=== PATIENT | born 1985 | race Caucasian/White ===

== ENCOUNTER 2024-11-18 15:07 | Outpatient (AMB) | payer BC, SELFPAY ==
--- NOTE | 2024-11-18 15:15 | MHC.OFFVIS ---
Vital Signs 11/18/24 15:17 Height 5 ft Weight 190 lb 11.198 oz BMI 37.2 BP 122/77 Blood Pressure Location Rt brachial Position Sitting Pulse 132 Pulse Source Doppler Pulse Oximetry (%) 95 Oxygen Delivery Method Room Air Intake Visit Reasons: Asthma Allergies hydrocodone Allergy (Severe, Verified 11/18/24 15:21) Anaphylaxis Sulfa (Sulfonamide Antibiotics) Allergy (Intermediate, Verified 11/18/24 15:21) Itching HPI HPI Asthma: Details: 39-year-old lady, 25 pack-year smoker, trying to quit, with underlying history of asthma referred for pulmonary evaluation. Patient said that she has been using albuterol MDI and ipratropium HFA with suboptimal control of her symptoms. She also complains of environmental allergies. Patient does not have recent pulmonary function or allergy testing. Patient states that she has been getting recurrent upper respiratory infections. She does have history of COPD in her mother. She previously was employed as a saxophone assembler. [facility] Social History (Updated 11/18/24 @ 15:24 by Kristyn Boyer [facility]) Patient Tobacco Use Status: Current everyday Tobacco user Tobacco use type: Cigarette Cigarettes Per Day: 10 Years Smoked: started age 15, 10 cig a day, Review of Systems Const Denies daytime sleepiness, Denies excessive sweating, Denies fatigue, Denies fever(s), Denies lethargy, Denies malaise, Denies night sweats, Denies snoring and Denies weight loss Eyes Denies blurry vision and Denies itchy eyes ENT Denies nasal congestion, Denies post nasal drip, Denies sinus pain, Denies sinus pressure and Denies other ( Thrush) Card Reports chest pain (Nonexertional), Denies pedal edema, Denies dyspnea, Denies orthopnea and Denies paroxysmal nocturnal dyspnea Resp Reports cough, Denies hemoptysis, Denies excessive phlegm production, Denies dyspnea, Denies snoring and Reports wheezing GI Denies abdominal pain and Denies heartburn Musc Denies myalgias, Denies arthralgias and Denies joint swelling Skin/Breast Denies rash Neuro Denies memory loss and Denies seizure-like activity Psych Denies abnormal sleep pattern, Denies anxiety and Denies memory loss Endo Denies excessive sweating, Denies fatigue and Denies heat intolerance Eugene/Lymph Denies easy bruising Aller/Immun Denies itchy eyes, Denies seasonal rhinorrhea and Reports wheezing Physical Exam Vital Signs: Last Vital Signs Pulse 132 11/18/24 15:17 BP 122/77 11/18/24 15:17 Pulse Ox 95 11/18/24 15:17 Oxygen Delivery Method Room Air 11/18/24 15:17 BMI result Body Mass Index 37.2 Const General: no acute distress and alert Nutritional Appearance: obese Orientation/consciousness: Other orientation findings ( oriented) HEENT Head: Yes atraumatic Eyes General: appearance normal, both eyes and all related structures Sclerae: sclerae normal EOM: EOMs intact bilaterally Neck Neck: Yes supple Lymphatic: no lymphadenopathy noted Resp Effort & Inspection: normal respiratory effort and no use of accessory muscles Auscultation: clear to auscultation bilaterally Cardio Rate: regular rate Rhythm: regular rhythm Heart sounds: no gallops, no murmurs and no rubs Skin General skin exam: other ( warm) Extrem General: No clubbing, No cyanosis and No edema Assessment & Plan Assessment & Plan (1) Asthma: Code(s): J45.909 - Unspecified asthma, uncomplicated Category: Medical Plan: Underlying asthma of unclear severity suboptimally controlled on ipratropium and albuterol MDI. Will start on Breo and obtain full PFT. (2) Recurrent URI (upper respiratory infection): Code(s): J06.9 - Acute upper respiratory infection, unspecified Category: Medical Plan: Will obtain immunoglobulin levels for further evaluation. (3) Environmental allergies: Code(s): Z91.09 - Other allergy status, other than to drugs and biological substances Category: Medical Plan: Will obtain IgE level, CBC with differential, and RAST panel. Orders: Orders Complete Blood Count Auto Diff Today Z91.09 - Other allergy status, other than to drugs and biological substances Resp Allergy Profile Region I Today J06.9 - Acute upper respiratory infection, unspecified, J45.909 - Unspecified asthma, uncomplicated, Z91.09 - Other allergy status, other than to drugs and biological substances PFT pulmonary function test Today J45.909 - Unspecified asthma, uncomplicated Immunoglobulins,IgG IgA IgM Today J06.9 - Acute upper respiratory infection, unspecified Immunoglobulin G Subclasses Today J06.9 - Acute upper respiratory infection, unspecified Medications: New fluticasone furoate-vilanterol 200-25 mcg/dose (Breo Ellipta) 1 inh inhalation DAILY 60 ea 6RF J06.9 - Acute upper respiratory infection, unspecified Coding Level of Care Code New Pt Level 4 (04579) Diagnoses Asthma J45.909 Recurrent URI (upper respiratory infection) J06.9 Environmental allergies Z91.09
[2024-11-18 15:17] VITALS: BP 122/77; PULSE 132; O2SAT 95; BMI 37.2
== END 2024-11-18 15:41 | disposition home or self-care (01) ==
LOC: HO.HPS 15:07
PROVIDERS: PCP Physician Assistant Medical; Visit Provider Internal Medicine Pulmonary Disease
DX: J45.909 Unspecified asthma, uncomplicated (principal); J06.9 Acute upper respiratory infection, unspecified; Z91.09 Other allergy status, other than to drugs and biological substances
CPT/HCPCS: 99204

== ENCOUNTER 2024-11-18 15:07 | Outpatient (REF) | payer BC, SELFPAY ==
[2024-11-18 16:42] LABS: MANUAL DIFF FLAG NO
[2024-11-18 17:08] LABS: Basophils Absolute Auto 0.1 X10*3/uL; Basophils Percent Auto 0.6 %; Eosinophils Absolute Auto 0.1 X10*3/uL; Eosinophils Percent Auto 0.5 %; Hematocrit 47.8 %; Hemoglobin 16.4 g/dl; Imm Gran Abs Auto 0.04 X10*3/uL (0.00-0.03); Imm Gran Pct Auto 0.3 % (0.0-0.4); Lymphocytes Absolute Auto 3.1 X10*3/uL; Lymphocytes Percent Auto 24.1 %; Mean Corpuscular HGB Conc 34.3 g/dl; Mean Corpuscular Hemoglobin 30.2 pg; Mean Platelet Volume 9.6 fL (9.4-12.4); Monocytes Absolute Auto 0.8 X10*3/uL; Monocytes Percent Auto 6.2 %; Neutrophils Absolute Auto 8.7 x10*3/uL; Neutrophils Percent Auto 68.3 %; Platelet Count 428 X10*3/uL; Red Blood Count 5.43 X10*6/uL; Red Cell Distribution Width 13.4 % (11.0-16.0); White Blood Count 12.8 X10*3/uL
[2024-11-21 07:19] LABS: IgA 226 mg/dL (47-310); IgG 767 mg/dL (600-1640); IgM 125 mg/dL (50-300)
[2024-11-21 16:17] LABS: Immunoglobulin G Subclass 1 348 mg/dL (382-929); Immunoglobulin G Subclass 2 289 mg/dL (241-700); Immunoglobulin G Subclass 3 37 mg/dL (22-178); Immunoglobulin G Subclass 4 10.5 mg/dL (4-86); Immunoglobulin G Total 699 mg/dL (600-1640)
[2024-11-26 12:57] LABS: Class Alternaria alternata 0; Class Aspergillus fumigatus 0; Class Bermuda Grass 0; Class Birch 0; Class Cat Dander 0; Class Cladosporium herbarum 0; Class Cockroach 0; Class Common Ragweed 0; Class Cottonwood 0; Class Derm. pterony 0; Class Dermatophagoides farinae 0; Class Dog Dander 0; Class Elm 0; Class Maple Box Elder 0; Class Mountain Cedar 0; Class Mouse Urine Protein 0; Class Mugwort 0; Class Oak 0; Class Penicillium crysogenum 0; Class Rough Pigweed 0; Class Sheep Sorrel 0; Class Sycamore 0; Class Timothy Grass 0; Class Walnut Tree 0; Class White Ash 0; Class White Mulberry 0; D001 IgE D pteronyssinus <0.10 kU/L; D002 - IgE D farinae <0.10 kU/L; E001 - IgE Cat Dander <0.10 kU/L; E005 - IgE Dog Dander <0.10 kU/L; E072-IgE Mouse Urine <0.10 kU/L; G002 IgE Bermuda Grass <0.10 kU/L; G006 - IgE Timothy Grass <0.10 kU/L; I006-IgE Cockroach, German <0.10 kU/L; Immunoglobulin E 136 kU/L (<OR=114); M001 IgE Penicillium chrysogen <0.10 kU/L; M002 - IgE Cladosporium herbar <0.10 kU/L; M003 - IgE Aspergillus fumigat <0.10 kU/L; M006 - IgE Alternaria alternat <0.10 kU/L; T001 IgE Maple/Box Elder <0.10 kU/L; T003 IgE Common Silver Birch <0.10 kU/L; T006 - IgE Cedar, Mountain <0.10 kU/L; T007 - IgE Oak, White <0.10 kU/L; T008 IgE Elm, American <0.10 kU/L; T010 - IgE Walnut <0.10 kU/L; T011 - IgE Maple Leaf Sycamore <0.10 kU/L; T014 - IgE Cottonwood <0.10 kU/L; T015 - IgE Ash, White <0.10 kU/L; T070 - IgE White Mulberry <0.10 kU/L; W001 - IgE Ragweed, Short <0.10 kU/L; W006 - IgE Mugwort <0.10 kU/L; W014 IgE Pigweed, Common <0.10 kU/L; W018 IgE Sheep Sorrel <0.10 kU/L
== END 2024-11-18 15:08 | disposition home or self-care (01) ==
LOC: HO.LAB 15:07
PROVIDERS: PCP Physician Assistant Medical; Visit Provider Internal Medicine Pulmonary Disease
DX: J06.9 Acute upper respiratory infection, unspecified (principal); Z91.09 Other allergy status, other than to drugs and biological substances; J45.909 Unspecified asthma, uncomplicated
CPT/HCPCS: 36415; 82784; 82785; 85025; 86003

== ENCOUNTER 2024-12-23 13:52 | Outpatient (REF) | payer BC, SELFPAY ==
[2024-12-23 10:21] VITALS: PULSE 122; O2SAT 99
--- NOTE | 2024-12-23 14:05 | PFT_ITS ---
Flows: FEV1: 96 % of predicted at 2.54 L FVC: 97 % of predicted at 3.08 L FEV1/FVC: 83 % Bronchodilator response: Absent Volumes: Total lung capacity: 81 % of predicted at 3.67 L Residual volume: 60 % of predicted at 0.68 L Slow vital capacity: 87 % of predicted at 3.00 L Expiratory reserve volume: 51 % of predicted at 0.52 L Diffusion capacity: Normal Impression: No obstructive or restrictive ventilatory defect. No bronchodilator response. Decreased expiratory reserve volume suggests extrathoracic restriction likely secondary to abdominal obesity. MTDD
--- OUTSIDE RECORDS SUMMARY | 2024-12-23 14:18 | XMS_ITS | Patient Health Record ---
Author Organization [facility] Address [address] [place] [address] Care Team Providers Care Strip Machine Tender Name Role Phone JAYSHREE LAY M.D. Primary Care Provider DYLAN Marx Unavailable [phone] Allergies Allergen (clinical drug ingredient) Drug/Non Drug Allergy documented on EMR Reaction Allergy Type Onset Date Status doxycycline Doxycycline ITCHING Drug Allergy Act marlo hydrocodone Hydrocodone anaphylaxis Drug Allergy A ctive Substance with sulfonamide structure and antibacterial mechanism of action (substance) Sulfa Antibiotics RASH Drug Allergy Active Results Component Value Reference Range Notes SURGICAL PATHOLOGY Reviewed date:05/16/2024 01:23:17 PM Interpretation: Performing Lab:Testing performed or reported by [facility], a Service of [facility], [address] [place] [address] Roland Garcia MD, Electrical Lineman [facility]# [id number] Notes/Report: Patient Name: RASHID UNDERWOOD Lab Patient : 1985 (Age: 38) Collection Date: 05/06/2024 Accession Date: 05/06/2024 Sign Out Date: 05/13/2024 Tissue Source: 1:EMB Final Diagnosis: Endometrium, biopsy: - Weakly proliferative endometrium with stromal breakdown. Primary Pathologist:Smitha Ribeiro M.D. electronically signed out by: Smitha Ribeiro M.D. / OLIVERIO Clinical History: Abnormal uterine bleeding Gross Description: Labeled endometrial biopsy . Received in formalin is a 1.1 x 1.0 x 0.2 cm aggregate of red, triplett tissue with translucent mucus. The specimen is entirely submitted. 1-multiple pieces, x 2. (EG)* As of January 09, 2024, the specimen processing and staining is performed at [facility], [address] [place] [address] (CLIA#[id number]). Its [facility]. Axel Salinas M.D. Electrical Lineman of Surgical Pathology, Genaro Braswell M.D. Electrical Lineman Cytopathology Phone #: [phone], On-Call Pathologist: [id number] Test, Urine Reviewed date:03/31/2024 01:11:03 PM Interpretation: Performing Lab: Notes/Report: Test, Urine NEG TSH reflex to [id number] Reviewed date:04/01/2024 08:43:06 AM Interpretation: Performing Lab:[facility], [address] [place] [address], Phone - [phone], Director - MDJodry Notes/Report: TSH 1.420 0.450-4.500 uIU/mL CBC, No Differential/Platele [id number] Reviewed date:04/01/2024 02:11:41 PM Interpretation: Performing Lab:[facility] [address] [place] [address], Phone - [phone], Director - MDJodry Notes/Report: WBC 11.2 3.4-10.8 x10E3/uL RBC 4.91 3.77-5.28 x10E6/uL Hemoglobin 14.8 11.1-15.9 g/dL Hematocrit 45.1 34.0-46.6 % MCV 92 79-97 fL MCH 30.1 26.6-33.0 pg MCHC 32.8 31.5-35.7 g/dL RDW 12.4 11.7-15.4 % PDF Report Reviewed date:04/01/2024 08:43:17 AM Interpretation: Performing Lab:[facility] [address] [place] [address], Phone - [phone], Director - MDJodry Notes/Report: Reason For Referral No Information Medications Medication SIG (Take, Route, Frequency, Duration) Notes Start Date End Date Status Sertraline HCl 100 MG Oral for 30 Days Active miSOPROStol 200 MCG as directed Orally 8 -12 hrs prior to appointment for 1 days 03/31/2024 Active Cyclobenzaprine HCl 10 MG Oral for 15 Days Active Progesterone 200 MG TAKE 2 CAPSULES BY M OUTH AT BEDTIME FOR 90 DAYS for 90 Active buPROPion HCl 100 MG Oral for 30 Days Active amLODIPine Besylate 10 MG 1 tablet Orall y Once a day for 30 day(s) Active clonazePAM 0.5 MG 1 tablet at bedtime Orally Once a day Active Naltrexone HCl 50 MG 1 tablet Orally Onc e a day for 30 day(s) Active lamoTRIgine 200 MG as directed Orally Active Social History Tobacco Use: Social History Observation Description Date Details (start date - stop date) Current Smoker NA - NA Tobacco Use/Smoking Question Answer Notes Are you a current smoker How often do you smoke cigarettes? every day How many cigarettes a day do you smoke? 11-20 Are you interested in quitting? Thinking about q uitting Alcohol Screen (Audit-C) Question Answer Notes Did you have a drink contain ing alcohol in the past year? Yes How often did you have a dri nk containing alcohol in the past year? 2 to 4 times a month (2 points) How many drinks did you have on a typical day when you were drinking in the past year? 3 or 4 drinks (1 point) How often did you have 6 or more drinks on one occasion in the past year? Never (0 point) Points 3 Interpretation Positive Problems Problem Type SNOMED Code ICD Code Onset Dates Problem Status W/U Status Risk Notes Problem Excessive and frequent menstruation (906949790) Excessive and frequent menstruation with regular cycle (N92.0) Active confirmed Problem Essential hypertension (56214898) Essential (primary) hypertension (I10) Active confirmed Problem Recurrent major depression in remission (82477179) Major depressive disorder, recurrent, in partial remission (F33.41) Active confirmed Problem Post-traumatic stress disorder (70983497) Post-traumatic stress disorder, unspecified (F43.10) Active confirmed Problem Uncomplicated asthma (disorder) (214045435) Unspecified asthma, uncomplicated (J45.909) Active confirmed Problem Fibromyalgia (902151747) Fibromyalgia (M79.7) Active confirmed Problem Benign endometrial hyperplasia (196731141636729) Benign endometrial hyperplasia (N85.01) Active confirmed Problem Abnormal uterine bleeding (60316614666544) Abnormal uterine and vaginal bleeding, unspecified (N93.9) Active confirmed Problem Pain in female genitalia on intercourse (09128689) Superficial (introital) dyspareunia (N94.11) Active confirmed Problem Body mass index 35.00 to 39.99 (995009361765874) Body mass index [BMI] 39.0-39.9, adult (Z68.39) Active confirmed Vital Signs Temperature 97.1 degrees Fahrenheit 03/31/2024 Blood pressure diastolic 82 mm Hg 03/31/2024 Height 60 in 03/31/2024 Blood pressure systolic 128 mm Hg 03/31/2024 Weight 200 lbs 03/31/2024 BMI 39.06 kg/m2 03/31/2024 Encounters Encounter Location Date Provider Diagnosis Total [address] [address] 03/24/2024 DYLAN PAULSON Encounter for gynecological examination (general) (routine) without abnormal findings Z01.419 and Encounter for screening for infections with a predominantly sexual mode of transmission Z11.[address] [address] 03/31/2024 DYLAN PAULSON Abnormal uterine and vaginal bleeding, unspecified N93.9 and Superficial (introital) dyspareunia N94.[address] [address] 05/06/2024 DYLAN PAULSON Abnormal uterine and vaginal bleeding, unspecified N93.[address] [address] 03/17/2024 DYLAN PAULSON [address] [address] 10/20/2024 DYLAN PAULSON Benign endometrial hyperplasia N85.01 Assessments Encounter Date Diagnosis (ICD Code) Assessment Notes Treatment Notes Treatment Clinical Notes Section Notes 03/24/2024 Encounter for gynecological examination (general) (routine) without abnormal findings (ICD-10 - Z01.419) During the visit, the following areas of concern were addressed: Discussed cervical cancer screening with either cytology alone every 3 years or high risk HPV co-testing every 5 years as per ASCCP guidelines. Advised continued annual pelvic exams. Patient encouraged to increase her level of exercise. SBE technique encouraged/taugh t. 03/31/2024 Abnormal uterine and vaginal bleeding, unspecified (ICD-10 - N93.9) Bleeding may be due to continuous progesterone use. Last biopsy was inactive endometrium. Will rule out polyps or new fibroids (has had 2 known small fibroids on previous ultrasounds). 03/31/2024 Superficial (introital) dyspareunia (ICD-10 - N94.11) Discussed taking things slow, using more foreplay and using 101 Nights of Great Sex book to help. I encourage her to have intimate time without penetration at first. 05/06/2024 Abnormal uterine and vaginal bleeding, unspecified (ICD-10 - N93.9) 10/20/2024 Benign endometrial hyperplasia (ICD-10 - N85.01) 03/24/2024 Encounter for screening for infections with a predominantly sexual mode of transmission (ICD-10 - Z11.3) Plan Of Treatment Pending Test Test Name Order Date Sonohysterogram 06/26/2022 Sonohysterogram 03/31/2024 Test, Urine 08/01/2022 URINE CULTURE 07/14/2023 ULTRASOUND: PELVIC W/TRANSVAGINAL 2021 ULTRASOUND: PELVIC W/TRANSVAGINAL 2022 CBC, Platelet, No [id number] Future Test Test Name Order Date MM Digital Mammo Screening 2024 Insurance Providers Payer Name Payer Address Payer Phone Subscriber Number Group Number Insured Name Patient Relationship to Insured Coverage Start Date Coverage End Date [employer] [address] [place] [address] [id number] RASHID UNDERWOOD Self - patient is the insured Medical (General) History Medical History History ICD Code Essential (primary) hypertension I10 Unspecified asthma, uncomplicated J45.90 9 Post-traumatic stress disorder, unspecif ied F43.10 Major depressive disorder, recurrent, in partial remission F33.41 Fibromyalgia M79.7 COVID-19 U07.1 Surgical History Surgery Date(Month/Year) ESSURE INSERTION 2013 TUBAL LIGATION (bilateral salpinectomy) 2019 Endoscopy 08/2018 LEEP 2005 Hospitalization History Reason Date(Month/Year) SEE SURGICAL HX
--- OUTSIDE RECORDS SUMMARY | 2024-12-23 14:18 | XMS_ITS ---
Author Organization [facility] Address [address] [place] [address] Care Team Providers Care Mission Worker Name Role Phone JAYSHREE LAY M.D. Primary Care Provider DYLAN Marx Unavailable [phone] REASON FOR VISIT PROGESTERONE REFILL Medications Medication SIG (Take, Route, Fr equency, Duration) Notes Start Date End Date Status Progesterone 200 MG TAKE 2 CAPSULES BY M OUTH AT BEDTIME FOR 90 DAYS for 90 Activ e Encounters Encounter Location Date Provider Diagnosis [address] [address] 10/20/2024 DYLAN PAULSON Benign endometrial hyperplasia N85.01 Assessments Encounter Date Diagnosis (ICD Code) Assessment Notes Treatment Notes Treatment Clinical Notes Section Notes 10/20/2024 Benign endometrial hyperplasia (ICD-10 - N85.01) Plan Of Treatment Medication Medication Name Sig Start Date Stop Date Notes Progesterone 200 MG TAKE 2 CAPSULES BY M OUTH AT BEDTIME FOR 90 DAYS for 90 Progress Notes * EMA UNDERWOODINDOB:1985 ( 39 yo F)Acc No.[id number]:10/20/2024 Patient:?RASHID UNDERWOOD :1985???Age:39 Y???Sex:Female Address:[address] [place] [address], [address] * Refills? Refill Progesterone Capsule, 200 MG, 180 Capsule, TAKE 2 CAPSULES BY MOUTH AT BEDTIME FOR 90 DAYS, 90, Refills=4 * true * Date:? Generated for Nolberto virk/Zander/Marcialitting on:?12/23/2024 02:18 PM EST
--- OUTSIDE RECORDS SUMMARY | 2024-12-23 14:18 | XMS_ITS ---
Author Organization [email or web address] Address [address] [place] [id number] Care Team Providers Care Hydrogenation Still Operator Name Role Phone JAYSHREE LAY M.D. Primary Care Provider DYLAN Marx Unavailable [phone] REASON FOR VISIT Annual MANAGER DIABETES Physical Encounters Encounter Location Date Provider Diagnosis [email or web address] [address] [address] 05/27/2024 DYLAN PAULSON Encounter for gynecological examination (general) (routine) without abnormal findings Z01.419 and Encounter for screening for infections with a predominantly sexual mode of transmission Z11.3 Assessments Encounter Date Diagnosis (ICD Code) Assessment Notes Treatment Notes Treatment Clinical Notes Section Notes 05/27/2024 Encounter for gynecological examination (general) (routine) without abnormal findings (ICD-10 - Z01.419) During the visit, the following areas of concern were addressed: Discussed cervical cancer screening with either cytology alone every 3 years or high risk HPV co-testing every 5 years as per ASCCP guidelines. Advised continued annual pelvic exams. Patient encouraged to increase her level of exercise. SBE technique encouraged/tau ght. 05/27/2024 Encounter for screening for infections with a predominantly sexual mode of transmission (ICD-10 - Z11.3) Plan Of Treatment Treatment Notes Assessment Notes Encounter for gynecological examination (general) (routine) without abnormal findings During the visit, the following areas of concern were addressed: Discussed cervical cancer screening with either cytology alone every 3 years or high risk HPV co-testing every 5 years as per ASCCP guidelines. Advised continued annual pelvic exams. Patient encouraged to increase her level of exercise. SBE technique encouraged/taught. Next Appt Details Follow Up: 1 Year, Reason: Y early Graphic Manager Exam Progress Notes * IHSAN UNDERWOODOB:1985 ( 39 yo F)Acc No.[id number]:05/27/2024 PROGRESS NOTES Patient:?RASHID UNDERWOOD Provider:?DYLAN PAULSON MD :1985???Age:38 Y???Sex:Female D ate:05/27/2024 Address:[address] [place] [address] Pcp:JAYSHREE LAY M.D. Subjective: * Chief Complaints: * ???1. Annual MANAGER DIABETES Physical. * HPI: ???Constitutional:?Rashid is a 38yo G0 with LMP who presents for her yearly clarity specialists annual exam. ?She has been in state of good health since her last exam.? She has the following concerns: She was seen recently for a prolonged period. She had an HSONO and EMBX which showed weakly proliferative endometrium and no intracavitary masses. The plan was to monitor her cycles. ?She has received the [employer] Covid-19 vaccine and booster and a Moderna booster. ?She takes daily Prometrium to treat endometrial hyperplasia that did not meet the criteria for EIN. ?Relationship status: *partnered for nearly 6 years. She is sexually active. Sexual partner(s): male. She does* wish to have STI testing. ?Menses: *usually monthly, lasting 5-10 days with the usual being about 7, heavy to start then taper. She will have to change her menstrual cup every couple of hours on the first couple of days. ?Contraception: tubal ligation ?The patient has not had an abnormal pap smear within the last 5 years. She had a LEEP at age 20 with normal paps since then. Her most recent pap smear was 03/23/23 - NIL, neg HRHPV. Due for pap in 2025. ?The patient does* exercise. She exercises x 6 days/week by walking 15-30 minutes. * ROS:?Annual Graphic Manager Exam ROS:?Bowel habit changes?denies.?Bladder symptoms?denies.?Vaginal discharge, unusual?denies.?Vaginal itch or odor?denies.?weight or appetite changes?denies.?Chest pains, SOB?denies.?depression?denies.?Breast:?Denies?Breast lump.?Denies?Nipple discharge.?Hematology:?Denies?Swollen glands.?Skin:?Patient denies?changing moles.?Psychiatric:?Denies?Anxiety.? * Medical History:? * Graphic Manager History:?/ Para?0/0.?Sexual activity?currently sexually active.?Last Pap Smear:?03/23/23 NIL, NEG HPV, 04/12/2020 - NIL, HR HPV neg (viewed on MyChart by LLS).?Mammogram:?03/2021.?Abnormal Pap Smear:?YES - LEEP at age 20, normal paps since.?LMP and menses?03/03/24.?History of STD's:?YES, VAGINAL WARTS.? Control:?bilateral tubal ligation.?Menarche?10.?Gardasil:?YES.? * OB History:?Total pregnancies?0.? Objective: * Vitals:? * Examination: ???General Examination: ?GENERAL APPEARANCE:?in no acute distress,well developed, well nourished,degreasing solution reclaimer present in room.?HEAD:?normocephalic, atraumatic.?NECK/THYROID:?neck supple, full range of motion,thyroid normal.?LYMPH NODES:?no axillary or supraclavicular adenopathy.?SKIN:?normal,good turgor,no rashes,no suspicious lesions.?BREASTS:?normal,no dimpling,no discharge,no drainage,no masses palpable bilaterally,nontender.?ABDOMEN:?soft, non-tender, non distended without masses or hepatosplenomegay.?BACK:?no costovertebral angle tenderness.?FEMALE GENITOURINARY:?Vulva without lesions or masses, vagina pink without abnormal discharge, lesions or masses, cervix appears normal and is not tender to palpation, uterus is normal size, mobile, nontender and anteverted, ovaries are not palpable.?NEUROLOGIC:?alert and oriented,gait normal.?PSYCH:?alert, oriented,cognitive function intact,cooperative with exam,good eye contact,mood/affect full range,speech clear.? Assessment: * Assessment: 1.?Encounter for gynecologic al examination (general) (routine) without abnormal findings - Z01.419 (Primary)???2.?Encounter for screening for infections with a predominantly sexual mode of transmission - Z11.3??? Plan: * Treatment: * Follow Up:?1 Year (Reason: Y early Graphic Manager Exam) * Images: Billing Information: * Visit Code:? 97617 Preventive Care Est Pt. Age 18-39. * Procedure Codes:? * Electronic signature of DYLAN PAULSON MD on 12/23/2024 at 02:18 PM EST Sign off status: Pending * Provider:?DYLAN PAULSON MD Date:?2023 Generated for Nolberto virk/Zander/eTransmitting on:?12/23/2024 02:18 PM EST History and Physical Notes * HPI (History of Present Illness) Category Sub-Category Detail Notes Category Not es Constitutional Rashid is a 38yo G0 with LMP who presents for her yearly clarity specialists annual exam. She has been in state of good health since her last exam. She has the following concerns: She was seen recently for a prolonged period. She had an HSONO and EMBX which showed weakly proliferative endometrium and no intracavitary masses. The plan was to monitor her cycles. She has received the Pfizer Covid-19 vaccine and booster and a Moderna booster. She takes daily Prometrium to treat endometrial hyperplasia that did not meet the criteria for EIN. Relationship status: *partnered for nearly 6 years. She is sexually active. Sexual partner(s): male. She does* wish to have STI testing. Menses: *usually monthly, lasting 5-10 days with the usual being about 7, heavy to start then taper. She will have to change her menstrual cup every couple of hours on the first couple of days. Contraception: tubal ligation The patient has not had an abnormal pap smear within the last 5 years. She had a LEEP at age 20 with normal paps since then. Her most recent pap smear was 03/23/23 - NIL, neg HRHPV. Due for pap in 2025. The patient does* exercise. She exercises x 6 days/week by walking 15-30 minutes. Examination Category Sub-Category Detail Notes Category Not es General Examination GENERAL APPEARANCE: in no ac [place] distress, well developed, well nourished, degreasing solution reclaimer present in room HEAD: normocephalic, atrau matic NECK/THYROID: neck supple, full ra nge of motion, thyroid normal ABDOMEN: soft, non-tender, no n distended without masses or hepatosplenomegay NEUROLOGIC: alert and oriented, gait normal SKIN: normal, good turgor, no rashes, no suspicious lesions BACK: no costovertebral an gle tenderness BREASTS: normal, no dimpling, no discharge, no drainage, no masses palpable bilaterally, nontender LYMPH NODES: no axillary or supra clavicular adenopathy PSYCH: alert, oriented, cog nitive function intact, cooperative with exam, good eye contact, mood/affect full range, speech clear FEMALE GENITOURINARY: Vulva without lesi ons or masses, vagina pink without abnormal discharge, lesions or masses, cervix appears normal and is not tender to palpation, uterus is normal size, mobile, nontender and anteverted, ovaries are not palpable
--- OUTSIDE RECORDS SUMMARY | 2024-12-23 14:19 | XMS_ITS ---
Author Organization [facility] Address [address] [place] [phone] Care Team Providers Care Floor Associate Name Role Phone JAYSHREE LAY M.D. 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 Encounters Encounter Location Date Provider Diagnosis [facility] [address] [address] 06/24/2024 DYLAN PAULSON Encounter for gynecological examination (general) (routine) without abnormal findings Z01.419 ; Encounter for screening for infections with a predominantly sexual mode of transmission Z11.3 and Encounter for screening mammogram for malignant neoplasm of breast Z12.31 Assessments Encounter Date Diagnosis (ICD Code) Assessment Notes Treatment Notes Treatment Clinical Notes Section Notes 06/24/2024 Encounter for gynecological examination (general) (routine) without abnormal findings (ICD-10 - Z01.419) During the visit, the following areas of concern were addressed: Discussed cervical cancer screening with either cytology alone every 3 years or high risk HPV co-testing every 5 years as per ASCCP guidelines. Advised continued annual pelvic exams. Patient encouraged to increase her level of exercise. SBE technique encouraged/tau ght. 06/24/2024 Encounter for screening for infections with a predominantly sexual mode of transmission (ICD-10 - Z11.3) 06/24/2024 Encounter for screening mammogram for malignant neoplasm of breast (ICD-10 - Z12.31) Plan Of Treatment Treatment Notes Assessment Notes [...] her level of exercise. SBE technique encouraged/taught. Future Test Test Name Order Date MM Digital Mammo Screening 2024 Next Appt Details Follow Up: 1 Year, Reason: Y early Tongue Binder Exam Progress Notes * IHSAN UNDERWOODOB:1985 ( 39 yo F)Acc No.[id number]:06/24/2024 PROGRESS NOTES Patient:?RASHID UNDERWOOD Provider:?DYLAN PAULSON MD :1985???Age:38 Y???Sex:Female D ate:06/24/2024 Address:[address] [place] [address] Pcp:JAYSHREE LAY M.D. Subjective: * Chief Complaints: * ???1. Annual SANITARY LANDFILL OPERATOR Physical. * HPI: ???Constitutional:? 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 ?She has been in state of good health since her last exam.? She has the following concerns: She was seen recently for a prolonged period. She had an HSONO and EMBX which showed weakly proliferative endometrium and no intracavitary masses. The plan was to monitor her cycles. ?She has received the Pfizer Covid-19 vaccine and [...] days/week by walking 15-30 minutes. * ROS:?Annual Tongue Binder Exam ROS:?Bowel habit changes?denies.?Bladder symptoms?denies.?Vaginal discharge, unusual?denies.?Vaginal itch or odor?denies.?weight or appetite changes?denies.?Chest pains, SOB?denies.?depression?denies.?Breast:?Denies?Breast lump.?Denies?Nipple discharge.?Hematology:?Denies?Swollen glands.?Skin:?Patient denies?changing moles.?Psychiatric:?Denies?Anxiety.? * Medical History:? Objective: * Vitals:? * Examination: ???General Examination: ?GENERAL APPEARANCE:?in no acute distress,well developed, well nourished,relations coordinator present in room.?HEAD:?normocephalic, atraumatic.?NECK/THYROID:?neck supple, full range [...] range,speech clear.? Assessment: * Assessment: 1.?Encounter for screening f or infections with a predominantly sexual mode of transmission - Z11.3???2.?Encounter for gynecological examination (general) (routine) without abnormal findings - Z01.419 (Primary)???3.?Encounter for screening mammogram for malignant neoplasm of breast - Z12.31??? Plan: * Treatment: 2.?Encounter for screening m ammogram for malignant neoplasm of breast?Imaging: MM Digital Mammo Screening (Ordered for 2024) * Follow Up:?1 Year (Reason: Y early Tongue Binder Exam) * Images: Billing Information: * Visit Code:? 71211 Preventive Care Est Pt. Age 18-39. 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 She has been in state [...] General Examination GENERAL APPEARANCE: in no ac [place] distress, well developed, well nourished, relations coordinator present in room HEAD: normocephalic, atrau matic [...]
== END 2024-12-23 13:53 | disposition home or self-care (01) ==
LOC: HO.RESP 13:52
PROVIDERS: PCP Physician Assistant Medical; Visit Provider Internal Medicine Pulmonary Disease
DX: J45.909 Unspecified asthma, uncomplicated (principal)
CPT/HCPCS: 94010; 94640; 94727; 94729

== ENCOUNTER 2024-12-23 14:22 | Outpatient (AMB) | payer BC, SELFPAY ==
[2024-12-23 14:34] VITALS: BP 102/62; PULSE 109; O2SAT 96; BMI 35.9
--- NOTE | 2024-12-23 14:34 | MHC.OFFVIS ---
Vital Signs 12/23/24 14:34 Height 5 ft Weight 184 lb 1.376 oz BMI 35.9 BP 102/62 Blood Pressure Location Rt brachial Position Sitting Pulse 109 Pulse Source Doppler Pulse Oximetry (%) 96 Oxygen Delivery Method Room Air Intake Visit Reasons: Asthma Allergies hydrocodone Allergy (Severe, Verified 11/18/24 15:21) Anaphylaxis Sulfa (Sulfonamide Antibiotics) Allergy (Intermediate, Verified 11/18/24 15:21) Itching HPI HPI Asthma: Details: 39-year-old lady, 25 pack-year smoker, trying to quit, with underlying history of asthma referred for pulmonary evaluation. Patient said that she has been using albuterol MDI and ipratropium HFA with suboptimal control of her symptoms. She also complains of environmental allergies. Patient does not have recent pulmonary function or allergy testing. Patient states that she has been getting recurrent upper respiratory infections. She does have history of COPD in her mother. She previously was employed as a starting gate driver. After the last office visit patient started on Breo with improvement in her symptoms. She did complete her immunologic workup and pulmonary function testing. She denies acute exacerbations. [facility] Social History (Updated 11/18/24 @ 15:24 by Kristyn Boyer [facility]) Patient Tobacco Use Status: Current everyday Tobacco user Tobacco use type: Cigarette Cigarettes Per Day: 10 Years Smoked: started age 15, 10 cig a day, Review of Systems Const Denies daytime sleepiness, Denies excessive sweating, Denies fatigue, Denies fever(s), Denies lethargy, Denies malaise, Denies night sweats, Denies snoring and Denies weight loss Eyes Denies blurry vision and Denies itchy eyes ENT Denies nasal congestion, Denies post nasal drip, Denies sinus pain, Denies sinus pressure and Denies other ( Thrush) Card Denies chest pain, Denies pedal edema, Denies dyspnea, Denies orthopnea and Denies paroxysmal nocturnal dyspnea Resp Denies cough, Denies hemoptysis, Denies excessive phlegm production, Denies dyspnea, Denies snoring and Denies wheezing GI Denies abdominal pain and Denies heartburn Musc Denies myalgias, Denies arthralgias and Denies joint swelling Skin/Breast Denies rash Neuro Denies memory loss and Denies seizure-like activity Psych Denies abnormal sleep pattern, Denies anxiety and Denies memory loss Endo Denies excessive sweating, Denies fatigue and Denies heat intolerance Eugene/Lymph Denies easy bruising Aller/Immun Denies itchy eyes, Denies seasonal rhinorrhea and Denies wheezing Physical Exam Vital Signs: Last Vital Signs Pulse 109 12/23/24 14:34 BP 102/62 12/23/24 14:34 Pulse Ox 96 12/23/24 14:34 Oxygen Delivery Method Room Air 12/23/24 14:34 BMI result Body Mass Index 35.9 Const General: no acute distress and alert Nutritional Appearance: not obese Orientation/consciousness: Other orientation findings ( oriented) HEENT Head: Yes atraumatic Eyes General: appearance normal, both eyes and all related structures Sclerae: sclerae normal EOM: EOMs intact bilaterally Neck Neck: Yes supple Lymphatic: no lymphadenopathy noted Resp Effort & Inspection: normal respiratory effort and no use of accessory muscles Auscultation: clear to auscultation bilaterally Cardio Rate: regular rate Rhythm: regular rhythm Heart sounds: no gallops, no murmurs and no rubs Skin General skin exam: other ( warm) Extrem General: No clubbing, No cyanosis and No edema Assessment & Plan Assessment & Plan (1) Asthma: Code(s): J45.909 - Unspecified asthma, uncomplicated Category: Medical Plan: Results of pulmonary function test reviewed, underlying mild asthma now well controlled on Breo and albuterol MDI. Continue current regimen. 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 Coding Level of Care Code Est Pt Level 4 (24136) Diagnoses Asthma J45.909 Recurrent URI (upper respiratory infection) J06.9
== END 2024-12-23 15:04 | disposition home or self-care (01) ==
LOC: HO.HPS 14:22
PROVIDERS: PCP Physician Assistant Medical; Visit Provider Internal Medicine Pulmonary Disease
DX: J45.909 Unspecified asthma, uncomplicated (principal)
CPT/HCPCS: 94060; 94727; 94729; 99214